=== PATIENT | male | born 1980 | race Caucasian/White ===

== ENCOUNTER 2019-06-19 17:54 | Emergency (ER) | payer MEDICAID ==
[~2019-06-19] VITALS: Ht 177.8 cm; Wt 79.5 kg
[2019-06-19 17:54] VITALS: BP 163/75
[~2019-06-19 17:54] MED LIST: CYCL10 PO; DOXY100C PO; EMTR1TAB12 PO; ISON100 PO; MUPI15CR TP; PYRI100T2 PO; SULF1TAB3 PO; TRAZ-252 PO
== END 2019-06-19 18:10 | disposition left against medical advice (07) ==
LOC: EMS 17:55
DX: R07.89 Other chest pain (principal); R06.02 Shortness of breath; F17.210 Nicotine dependence, cigarettes, uncomplicated; F12.90 Cannabis use, unspecified, uncomplicated; Z53.21 Procedure and treatment not carried out due to patient leaving prior to being seen by health care provider
CPT/HCPCS: 93005

== ENCOUNTER 2021-12-23 10:16 | Emergency (ER) | payer MEDICAID ==
[~2021-12-23] VITALS: Ht 175.3 cm; Wt 77.0 kg
[~2021-12-23 10:16] MED LIST changes: -CYCL10 PO; +CYCL10TA17 PO; -DOXY100C PO; -PYRI100T2 PO; -SULF1TAB3 PO; +[UNRECOGNIZED DRUG - CODE] PO
[2021-12-23 10:31] VITALS: BP 122/69
== END 2021-12-23 14:58 | disposition left against medical advice (07) ==
LOC: EMS 10:19
DX: R07.89 Other chest pain (principal); Z53.21 Procedure and treatment not carried out due to patient leaving prior to being seen by health care provider